=== PATIENT | male | born 1950 | race Two or more races ===

== ENCOUNTER 2016-11-18 10:53 | Outpatient (CLI) | payer MEDICARE, OTHER ==
[~2016-11-18 10:53] MED LIST: ALFU10TA PO; AMIO200T2 PO; AMLO10TA4 PO; ATOR20TA PO; CALC-838 PO; CARV25TA2 PO; CHLO473M3 PO; CLON0.5T PO; CYCL30DR EACHEYE; ENAL20TA70 PO; LANS30CA10 PO; OLME40TA3 PO; OLOP5DRO EACHEYE; ONCOUMADIN PO; TAPAZOLE PO
[2016-11-18 11:42] LABS: BASOPHILS % (AUTO) 0.5 % (0.0-2.0); EOSINOPHILS # (AUTO) 0.1 /CMM (0.0-0.7); EOSINOPHILS % (AUTO) 1.2 % (0.0-6.0); HEMATOCRIT 41 % (39-51); HEMOGLOBIN 13.5 g/dL (13.5-17.5); LYMPHOCYTES # (AUTO) 1.5 /CMM (0.8-4.8); LYMPHOCYTES % (AUTO) 26.2 % (20.0-44.0); MEAN CORPUSCULAR HEMOGLOBIN 29 PG (26.0-33.0); MEAN CORPUSCULAR HGB CONC 33 g/dl (31.0-36.0); MEAN CORPUSCULAR VOLUME 89 fL (80-96); MONOCYTES # (AUTO) 0.4 /CMM (0.1-1.30); MONOCYTES % (AUTO) 7.7 % (2.0-12.0); NEUTROPHILS # (AUTO) 3.8 /CMM (1.8-8.9); NEUTROPHILS % (AUTO) 64.4 % (43.0-81.0); PLATELET COUNT (AUTO) 180 /CMM (150-450); RDW COEFFICIENT OF VARIATION 13.9 (11.5-15.0); RED BLOOD CELL COUNT(AUTO) 4.62 MIL/uL (4.5-6.0); WHITE BLOOD COUNT (AUTO) 5.9 K/uL (4.3-11.0)
[2016-11-18 11:50] LABS: BILIRUBIN,TOTAL 0.9 mg/dL (0.2-1.0); CALCIUM, SERUM 8.9 mg/dL (8.5-10.1); CREATININE 0.9 mg/dL (0.6-1.3); TOTAL PROTEIN, SERUM 7.5 g/dL (6.4-8.2)
[2016-11-18 16:19] LABS: PROSTATE SPECIFIC ANTIGEN SCR 0.74 ng/mL (0.00-4.00)
== END 2016-11-18 23:59 | disposition home or self-care (01) ==
LOC: LAB 10:53
PROVIDERS: ATTEND Internal Medicine Interventional Cardiology
DX: I70.213 Atherosclerosis of native arteries of extremities with intermittent claudication, bilateral legs (principal); I25.10 Atherosclerotic heart disease of native coronary artery without angina pectoris; I10 Essential (primary) hypertension; R31.9 Hematuria, unspecified; R53.81 Other malaise; E78.5 Hyperlipidemia, unspecified; R53.83 Other fatigue
CPT/HCPCS: 36415; 80053-TC; 80061-TC; 82306; 82550-TC; 84153-TC; 85025-TC; 85652-TC

== ENCOUNTER 2020-01-01 23:07 | Emergency (ER) | payer MEDICARE, OTHER ==
[~2020-01-01] VITALS: Ht 162.6 cm; Wt 79.4 kg
[~2020-01-01 23:07] MED LIST changes: -AMIO200T2 PO; +AMIO200T4 PO; -LANS30CA10 PO; +LANS30CA54 PO; +OLME40TA12 PO; -OLME40TA3 PO
--- NOTE | 2020-01-01 23:45 | NUR ---
PT AAOX4. AMBULATORY WITH STEADY GAIT. BIBSELF C/O HEMATURIA FOR 1 DAY. ALSO STATED HE HAS BEEN PEEING FREQUENTLY. VSS. NO ACUTE DISTRESS NOTED. URINE COLLECTED AND SENT TO LAB.
[2020-01-01 23:49] LABS: APPEARANCE,URINE Slightly Cloudy (CLEAR); BILIRUBIN,URINE Negative (NEGATIVE); BLOOD, URINE Large Ery/uL (NEGATIVE); KETONES,URINE Negative (NEGATIVE); LEUKOCYTE ESTERASE ,URINE Negative (NEGATIVE); NITRITE, URINE Negative (NEGATIVE); PROTEIN,URINE 30 mg/dl (NEGATIVE); UGLUCOSE Negative (NEGATIVE); UROBILINOGEN,URINE 0.2 EU/dL (0.2)
[2020-01-01 23:53] LABS: COLOR,URINE LIGHT PINK (YELLOW)
[2020-01-01 23:55] LABS: POTASSIUM 3.5 mmol/L (3.5-5.1)
[2020-01-01 23:58] LABS: BASOPHILS % (AUTO) 0.4 % (0.0-2.0); HEMATOCRIT 43 % (39-51); HEMOGLOBIN 14.2 g/dL (13.5-17.5); LYMPHOCYTES # (AUTO) 1.9 /CMM (0.8-4.8); LYMPHOCYTES % (AUTO) 24.9 % (20.0-44.0); MEAN CORPUSCULAR HGB CONC 33 g/dl (31.0-36.0); MEAN CORPUSCULAR VOLUME 94 fL (80-96); MONOCYTES # (AUTO) 0.6 /CMM (0.1-1.30); MONOCYTES % (AUTO) 8.2 % (2.0-12.0); NEUTROPHILS # (AUTO) 4.9 /CMM (1.8-8.9); NEUTROPHILS % (AUTO) 65.5 % (43.0-81.0); PLATELET COUNT (AUTO) 167 /CMM (150-450); RED BLOOD CELL COUNT(AUTO) 4.56 MIL/uL (4.5-6.0); WHITE BLOOD COUNT (AUTO) 7.5 K/uL (4.3-11.0)
[2020-01-01 23:59] LABS: BACTERIA,URINE Few /HPF (None Seen); RBC,URINE 81-100 /HPF (0-2); SQUAMOUS EPITHELIAL CELL,UR Few /HPF (None Seen); WBC,URINE 0-2 /HPF (0-3)
--- NOTE | 2020-01-02 00:31 | NUR ---
BROUGHT BY RADIOLOGY TO CT
--- NOTE | 2020-01-02 00:40 | NUR ---
BACK FROM CT
--- NOTE | 2020-01-02 01:04 | NUR ---
DANIEL () CONTACT INFORMATION: [phone]
--- NOTE | 2020-01-02 01:32 | NUR ---
Patient discharged to home in stable condition. Written and verbal after care instructions given. Patient verbalizes understanding of instruction. Pt ambulated with steady gait. vss.
[2020-01-02 01:33] VITALS: BP 129/78
== END 2020-01-02 01:33 | disposition home or self-care (01) ==
LOC: ER 23:12
DX: R31.9 Hematuria, unspecified (principal); M54.5 Low back pain; I10 Essential (primary) hypertension; Z87.442 Personal history of urinary calculi; Z98.890 Other specified postprocedural states; Z79.01 Long term (current) use of anticoagulants; Z79.899 Other long term (current) drug therapy
CPT/HCPCS: 36415; 80048-TC; 81000-TC; 85025-TC; 85610-TC; 85730-TC; 87086-TC

== ENCOUNTER 2021-09-05 09:24 | Emergency (ER) | payer MEDICARE, OTHER ==
[~2021-09-05] VITALS: Ht 167.6 cm; Wt 81.6 kg
[~2021-09-05 09:24] MED LIST changes: -AMIO200T4 PO; +AMIO200T5 PO
--- NOTE | 2021-09-05 09:38 | NUR ---
SLIPPED AND FELL YESTERDAY PT STATED HE HURT HIS LEFT BACK, RIB, SIDE, AND HIP. DENIES -LOC. VIALS WITHIN NORMAL LIMITS. BREATHING REGULAR AND UNLABORED. WILL CONTINUE TO MONITOR.
--- NOTE | 2021-09-05 11:19 | NUR ---
Patient discharged to home in stable condition. Written and verbal after care instructions given to both patient and his son. Patient verbalizes understanding of instruction.
[2021-09-05 11:20] VITALS: BP 128/68
== END 2021-09-05 11:20 | disposition home or self-care (01) ==
LOC: ER 09:24
DX: S20.212A Contusion of left front wall of thorax, initial encounter (principal); S70.02XA Contusion of left hip, initial encounter; I10 Essential (primary) hypertension; F41.9 Anxiety disorder, unspecified; Z98.890 Other specified postprocedural states; Z79.899 Other long term (current) drug therapy; Z79.01 Long term (current) use of anticoagulants; W01.0XXA Fall on same level from slipping, tripping and stumbling without subsequent striking against object, initial encounter; Y93.89 Activity, other specified; Y92.89 Other specified places as the place of occurrence of the external cause; Y99.8 Other external cause status
CPT/HCPCS: 71100-TC; 73502